=== PATIENT | female | born 1960 | race Caucasian/White ===

== ENCOUNTER 2017-04-10 21:07 | Emergency (ER) | payer OTHER ==
[~2017-04-10] VITALS: Ht 170.2 cm; Wt 53.8 kg
[2017-04-10 21:13] VITALS: BP 128/84; PULSE 80; RESP 16; TEMP 98.3; O2SAT 98
[2017-04-10] MEDS ORDERED: ATOR20TA15 PO (21:27)
[2017-04-10] MEDS ORDERED: PRED10 PO (21:27)
[2017-04-10] MEDS ORDERED: GABA100C4 PO (21:27)
[2017-04-10] MEDS ORDERED: CLAR10CA3 PO (21:46)
--- NOTE | 2017-04-10 21:46 | PD ---
HPI Chief Complaint: ENT Complaint Time Seen by Provider: 21:25 Travel History International Travel<30 days: No Contact w/Intl Traveler<30days: No Traveled to known affect area: No History of Present Illness HPI 57 white female presents to emergency department with chief complaint of dullness and muffled sound in the right ear for one week. She reports she was seen by her primary care who put her on steroids but symptoms have persisted. She denies pain, fever, discharge from the ear, or trauma to the ear. She denies past history of otitis media. [facility] Past Medical History Medical History: Denies Significant Hx High Cholesterol: Yes Diminished Hearing: No Neurologic: Yes Immunizations Current: Yes Tetanus Vaccination: > 5 Years Influenza Vaccination: No ?: Not Dilation and Curettage (D&C): Yes Past Surgical History Hysterectomy: Yes Other Surgery: Yes (BREAST AUGMENT) Social History Alcohol Use: Yes (OCC) Tobacco Use: No Substance Use: No Allergies-Medications (Allergen,Severity, Reaction): Coded Allergies: No Known Allergies (Unverified , 04/10/17) Reported Meds & Prescriptions Reported Meds & Active Scripts Active Reported Gabapentin 100 Mg Cap 100 Mg PO DAILY Atorvastatin (Atorvastatin Calcium) 20 Mg Tab 20 Mg PO HS Prednisone 10 Mg Tab 10 Mg PO DAILY Review of Systems Except as stated in HPI: all other systems reviewed are Neg Physical Exam Narrative GENERAL: Well-nourished, well-developed female. SKIN: Focused skin assessment warm/dry. HEAD: Normocephalic. EARS: Air fluid bubbles present in right ear. No TM erythema. No canal swelling. No drainage. EYES: No scleral icterus. No injection or drainage. NECK: Supple, trachea midline. No JVD or lymphadenopathy. CARDIOVASCULAR: Regular rate and rhythm without murmurs, gallops, or rubs. RESPIRATORY: Breath sounds equal bilaterally. No accessory muscle use. GASTROINTESTINAL: Abdomen soft, non-tender, nondistended. MUSCULOSKELETAL: No cyanosis, or edema. BACK: Nontender without obvious deformity. No CVA tenderness. Data Data Last Documented VS Vital Signs Date Time Temp Pulse Resp B/P Pulse Ox O2 Delivery O2 Flow Rate FiO2 04/10/17 21:27 04/10/17 21:13 98.3 80 16 98 Room Air MDM Medical Decision Making Medical Screen Exam Complete: Yes Emergency Medical Condition: Yes Medical Record Reviewed: Yes Differential Diagnosis Serous otitis, otitis media, otitis externa Narrative Course 57-year-old female presents to emergency department for evaluation of right ear pressure and muffled hearing. She was seen by PCP and put on steroids for presumably eustachian tube dysfunction and serous otitis. She reports symptoms have persisted but declines that she has pain, fever, discharge from the ear. Plan will be to put patient on nonsedating oral antihistamine with a diagnosis of serous otitis. Referral to ENT for evaluation. Diagnosis Primary Impression: Serous otitis media Qualified Code: H65.91 - Right serous otitis media, unspecified chronicity Referrals: Ear / Nose / Throat Specialist Patient Instructions: General Instructions Scripts Loratadine (Claritin)10 Mg Cap10 Mg PO DAILY #30 CAP Ref 0 Prov:Izabel Davis 04/10/17 Disposition: 01 DISCHARGE HOME Condition: Stable Izabel Davis April 10, 2017 21:46
== END 2017-04-10 21:50 | disposition home or self-care (01) ==
LOC: PHEFT 21:07
DX: H65.91 Unspecified nonsuppurative otitis media, right ear (principal)
CPT/HCPCS: 99283